=== PATIENT | male | born 1945 | race African-American/Black ===

== ENCOUNTER 2017-12-30 03:19 | Emergency (ER) | payer MEDICARE ==
[2017-12-30] MEDS ORDERED: CHLORPROMAZINE HCL 25 MG TABLET PO ONE (04:10)
[2017-12-30] MEDS ORDERED: DIPHENHYDRAMINE HCL 25 MG CAPSULE PO ONE (04:10)
--- NOTE | 2017-12-30 04:20 | ER Document Report ---
ED General - General Mode of Arrival: Ambulatory Information source: Patient TRAVEL OUTSIDE OF THE [place] IN LAST 30 DAYS: No <VIKKI GATES - Last Filed: 12/30/17 04:15> <DANK AGGARWAL - Last Filed: 12/30/17 05:43> - General Chief Complaint: Vomiting Stated Complaint: ABDOMINAL PAIN Time Seen by Provider: 12/30/17 03:55 Notes: Patient is a 72 year old male with a history of HTN, hyperlipidemia, diabetes type 2, GERD presents to the emergency department complaining of hiccups, abdominal pain and vomiting onset approximately 10 days ago. Patient states he was seen by his primary care provider and was prescribed Valium. Patient states the Valium has not helped his hiccups. Patient states he feels that the vomiting and abdominal pain is onset by hiccuping. He further states he continuously hiccups, reporting that he will not go hours without hiccuping. Patient denies any nausea, dysuria, or prostate problems. (VIKKI GATES) - Related Data Allergies/Adverse Reactions: No Known Allergies Allergy (Unverified 12/07/14 19:45) Past Medical History - General Information source: Patient - Social History Smoking Status: Never Smoker Cigarette use (# per day): No Chew tobacco use (# tins/day): No Smoking Education Provided: No Frequency of alcohol use: None Family History: Reviewed & Not Pertinent - Past Medical History Cardiac Medical History: Reports: Hx Hypercholesterolemia, Hx Hypertension - on meds Endocrine Medical History: Reports: Hx Diabetes Mellitus Type 2 Renal/ Medical History: Reports: Hx Kidney Stones Psychiatric Medical History: Reports: Hx Depression - Immunizations Hx Diphtheria, Pertussis, Tetanus Vaccination: Yes Hx Pneumococcal Vaccination: 08/18/14 <VIKKI GATES - Last Filed: 12/30/17 04:15> Review of Systems - Review of Systems Constitutional: See HPI EENT: No symptoms reported Cardiovascular: No symptoms reported Respiratory: No symptoms reported Gastrointestinal: See HPI, Abdominal pain, Vomiting Genitourinary: No symptoms reported Male Genitourinary: No symptoms reported Musculoskeletal: No symptoms reported Skin: No symptoms reported Hematologic/Lymphatic: No symptoms reported Neurological/Psychological: No symptoms reported -: Yes All other systems reviewed and negative <VIKKI GATES - Last Filed: 12/30/17 04:15> Physical Exam - General General appearance: Appears well, Alert In distress: None - HEENT Head: Normocephalic, Atraumatic Eyes: Normal Conjunctiva: Normal Extraocular movements intact: Yes Pupils: PERRL Mucous membranes: Normal Neck: Normal - Respiratory Respiratory status: No respiratory distress Chest status: Nontender Breath sounds: Normal Chest palpation: Normal - Cardiovascular Rhythm: Regular Heart sounds: Normal auscultation Murmur: No Friction rub: No Gallop: None auscultated - Abdominal Inspection: Obese Distension: No distension Bowel sounds: Normal Tenderness: Nontender Organomegaly: No organomegaly - Back Back: Normal - Extremities General upper extremity: Normal ROM General lower extremity: Normal ROM - Neurological Neuro grossly intact: Yes Cognition: Normal Orientation: AAOx4 Maria Eugenia Coma Scale Eye Opening: Spontaneous Elizabeth Coma Scale Verbal: Oriented Maria Eugenia Coma Scale Motor: Obeys Commands Maria Eugenia Coma Scale Total: 15 Speech: Normal - Psychological Associated symptoms: Normal affect, Normal mood - Skin Skin Temperature: Warm Skin Moisture: Dry Skin Color: Normal <VIKKI GATES - Last Filed: 12/30/17 04:15> - Vital signs Vitals: Temp Pulse Resp BP Pulse Ox 98.5 F 67 16 135/66 H 95 12/30/17 03:46 12/30/17 03:46 12/30/17 03:46 12/30/17 03:46 12/30/17 03:46 Course <VIKKI GATES - Last Filed: 12/30/17 04:15> - Laboratory Result Diagrams: 12/30/17 04:20 12/30/17 04:20 - EKG Interpretation by Wy EKG shows normal: Sinus rhythm, [place], Intervals, QRS Complexes, ST-T Waves Rate: Normal - 60 Rhythm: NSR [place]/QRS: RBBB When compared to previous EKG there are: No significant change <DANK AGGARWAL - Last Filed: 12/30/17 05:43> - Re-evaluation Re-evalutation: 12/30/17 05:39 The patient was having hiccups until he was given Thorazine p.o. about 45 minutes ago. He has not had any hiccups since then and states that he does feel better. (DANK AGGARWAL) - Vital Signs Vital signs: Temp Pulse Resp BP Pulse Ox 98.5 F 67 16 135/66 H 95 12/30/17 03:46 12/30/17 03:46 12/30/17 03:46 12/30/17 03:46 12/30/17 03:46 - Laboratory Laboratory results interpreted by me: 12/30/17 12/30/17 12/30/17 04:20 04:20 04:20 WBC 13.0 H RBC 4.17 L Hgb 11.6 L Hct 34.8 L Absolute Neutrophils 9.0 H BUN 24 H Creatinine 1.83 H Est GFR ( Amer) 44 L Est GFR (Non-Af Amer) 36 L Glucose 165 H Direct Bilirubin 0.5 H Lipase 368.1 H Urine Blood SMALL H Ur Leukocyte Esterase TRACE H Discharge <VIKKI GATES - Last Filed: 12/30/17 04:15> <DANK AGGARWAL - Last Filed: 12/30/17 05:43> - Discharge Clinical Impression: Hiccups Condition: Stable Disposition: HOME, SELF-CARE Additional Instructions: Hiccups Hiccups are contractions of the diaphragm muscle. They usually occur without warning, but they may follow over-eating or drinking large amounts of soda. Hiccups are usually harmless. We don't know why some people have prolonged bouts of hiccups. Most of the time, they will eventually go away without treatment. Medication can be prescribed to help control hiccups. If hiccups persist, you'll need a medical work-up to see if there's any underlying illness. Return if there's any significant change, such as chest pain , abdominal pain, vomiting, or fever. Take the medications as prescribed. Stop taking the Valium that was prescribed yesterday. Follow-up with your primary care provider if not improving, or with a local metal spinner. RETURN TO THE EMERGENCY ROOM IF ANY NEW OR WORSENING SYMPTOMS. Prescriptions: Chlorpromazine HCl [Thorazine 25 Mg Tablet] 25 mg PO ASDIR PRN #30 tablet PRN Reason: Hiccups Referrals: BLACK LEIVA PA-C [Primary Care Provider] - Follow up as needed Scribe Attestation: 12/30/17 04:45 I personally performed the services described in the documentation, reviewed and edited the documentation which was dictated to the scribe in my presence, and it accurately records my words and actions. (DANK AGGARWAL) Scribe Documentation - Scribe Written by Sarahe:: Esteban Milton, 12/30/2017 04:22 acting as scribe for :: Mandi <VIKKI GATES - Last Filed: 12/30/17 04:15>
[2017-12-30 04:38] LABS: ABSOLUTE BASOPHILS # (AUTO) 0.2 10^3/uL (0.0-0.2); ABSOLUTE EOSINOPHILS # (AUTO) 0.1 10^3/uL (0.0-0.6); ABSOLUTE LYMPHOCYTES (AUTO) 2.5 10^3/uL (0.5-4.7); ABSOLUTE MONOCYTES (AUTO) 1.1 10^3/uL (0.1-1.4); BASOPHILS % (AUTO) 1.5 % (0-2); EOSINOPHILS % (AUTO) 1.1 % (0-6); HEMATOCRIT 34.8 % (37.9-51.0); HEMOGLOBIN 11.6 g/dL (13.5-17.0); LYMPHOCYTES % (AUTO) 19.6 % (13-45); MEAN CORPUSCULAR HEMOGLOBIN 27.8 pg (27.0-33.4); MEAN CORPUSCULAR HGB CONC 33.3 g/dL (32.0-36.0); MEAN CORPUSCULAR VOLUME 84 fl (80-97); MONOCYTES % (AUTO) 8.5 % (3-13); PLATELET COUNT 392 10^3/uL (150-450); RED BLOOD COUNT 4.17 10^6/uL (4.35-5.55); RED CELL DISTRIBUTION WIDTH 13.8 % (11.5-14.0); SEGMENTED NEUTROPHILS % (AUTO) 69.3 % (42-78); TOTAL CELLS COUNTED % (AUTO) 100 %
[2017-12-30 04:42] LABS: APPEARANCE,URINE CLEAR; BILIRUBIN,URINE NEGATIVE (NEGATIVE); COLOR,URINE YELLOW; GLUCOSE, URINE NEGATIVE (NEGATIVE); KETONES,URINE NEGATIVE (NEGATIVE); LEUKOCYTE ESTERASE,URINE TRACE (NEGATIVE); NITRITE,URINE NEGATIVE (NEGATIVE); PROTEIN,URINE NEGATIVE (NEGATIVE); URINE SPECIFIC GRAVITY 1.005; UROBILINOGEN,URINE NEGATIVE mg/dL (<2.0)
[2017-12-30 04:55] LABS: ALANINE AMINOTRANSFERASE 28 U/L (21-72); ALBUMIN 3.9 g/dL (3.5-5.0); ALKALINE PHOSPHATASE 68 U/L (38-126); ANION GAP 13 (5-19); ASPARTATE AMINO TRANSFERASE 44 U/L (17-59); BILIRUBIN,DIRECT 0.5 mg/dL (0.0-0.4); BILIRUBIN,TOTAL 0.5 mg/dL (0.2-1.3); BLOOD UREA NITROGEN 24 mg/dL (7-20); CALCIUM 9.6 mg/dL (8.4-10.2); CARBON DIOXIDE 28 mmol/L (22-30); CHLORIDE 102 mmol/L (98-107); CREATINE KINASE 142 U/L (55-170); GLUCOSE 165 mg/dL (75-110); LIPASE 368.1 U/L (23-300); POTASSIUM 4.3 mmol/L (3.6-5.0); SODIUM 142.7 mmol/L (137-145)
[2017-12-30 06:11] VITALS: BP 146/74
--- NOTE | 2017-12-30 08:58 | EKG REPORT ---
SEVERITY:- ABNORMAL ECG - SINUS RHYTHM RIGHT BUNDLE BRANCH BLOCK : Confirmed by: Dea Alcantara 30-Dec-2017 08:57:09
== END 2017-12-30 06:11 | disposition home or self-care (01) ==
LOC: ER 03:19
DX: R06.6 Hiccough (principal); R11.10 Vomiting, unspecified; R10.9 Unspecified abdominal pain; I10 Essential (primary) hypertension; E78.00 Pure hypercholesterolemia, unspecified; E11.9 Type 2 diabetes mellitus without complications; K21.9 Gastro-esophageal reflux disease without esophagitis; E66.9 Obesity, unspecified
CPT/HCPCS: 93005; 99284; 36415; 82550; 83690; 85025; 80053; 81001; 84484; 93010; A9270 ×2; J3490

== ENCOUNTER 2019-10-14 08:50 | Emergency (ER) | payer MEDICARE ==
[2019-10-14] MEDS ORDERED: METOCLOPRAMIDE HCL INJ/PF 10 MG/2 ML SDV IV ONE (09:38)
--- NOTE | 2019-10-14 09:40 | ER Document Report ---
ED Medical Screen (RME) - General Chief Complaint: General Weakness Stated Complaint: WEAKNESS Time Seen by Provider: 10/14/19 09:32 Primary Care Provider: BLACK LEIVA PA-C [Primary Care Provider] - Follow up as needed Notes: HPI: 73-year-old male with history of hypertension and diabetes presenting for multiple complaints. Patient has generalized weakness in the legs which makes it difficult for him to walk normally states the generalized weakness is worse over the last 24 hours. Does not have unilateral weakness. Woke up last night began vomiting has had 3 episodes of vomiting today. Complains of mild discomfort in the left lower quadrant of the abdomen. Complains of shortness of breath with the vomiting episodes. No fever or other recent illness. Patient also complaining of hiccups I have greeted and performed a rapid initial assessment of this patient. A comprehensive ED assessment and evaluation of the patient, analysis of test results and completion of the medical decision making process will be conducted by additional ED providers PHYSICAL EXAMINATION: GENERAL: Well-appearing, well-nourished and in mild acute distress. HEAD: Atraumatic, normocephalic. EYES: sclera anicteric, conjunctiva are normal. ENT: Moist mucous membranes. NECK: Normal range of motion LUNGS: Normal work of breathing, clear to auscultation HEART: 2+ radial pulses bilaterally, regular rate and rhythm ABD: limited by positioning for exam in triage. Obese. Mild tenderness in the left lateral abdomen on palpation EXTREMITIES: no pitting or edema. No cyanosis. NEUROLOGICAL: No focal neurological deficits. Moves all extremities spontaneously and on command. Mild generalized weakness bilateral lower extremities PSYCH: Normal mood, normal affect. SKIN: Warm, Dry, normal turgor, no rashes or lesions noted. TRAVEL OUTSIDE OF THE [place] IN LAST 30 DAYS: No - Related Data Allergies/Adverse Reactions: No Known Allergies Allergy (Unverified 12/07/14 19:45) Home Medications: Glimperide, Metformin, Simvastatin, Lisinopril, Spironalactone Past Medical History - Past Medical History Cardiac Medical History: Reports: Hx Hypercholesterolemia, Hx Hypertension - on meds Endocrine Medical History: Reports: Hx Diabetes Mellitus Type 2 Renal/ Medical History: Reports: Hx Kidney Stones. Denies: Hx Peritoneal Dialysis Psychiatric Medical History: Reports: Hx Depression - Immunizations Hx Diphtheria, Pertussis, Tetanus Vaccination: Yes Physical Exam - Vital signs Vitals: Temp Pulse Resp BP Pulse Ox 98.2 F 86 20 213/121 H 94 10/14/19 08:56 10/14/19 08:56 10/14/19 08:56 10/14/19 08:56 10/14/19 08:56 Course - Vital Signs Vital signs: Temp Pulse Resp BP Pulse Ox 98.2 F 86 20 213/121 H 94 10/14/19 08:56 10/14/19 08:56 10/14/19 08:56 10/14/19 08:56 10/14/19 08:56 Doctor's Discharge - Discharge Referrals: BLACK LEIVA PA-C [Primary Care Provider] - Follow up as needed
[2019-10-14 10:11] LABS: ABSOLUTE BASOPHILS # (AUTO) 0.1 10^3/uL (0.0-0.2); ABSOLUTE EOSINOPHILS # (AUTO) 0.1 10^3/uL (0.0-0.6); ABSOLUTE LYMPHOCYTES (AUTO) 3.2 10^3/uL (0.5-4.7); BASOPHILS % (AUTO) 0.9 % (0-2); EOSINOPHILS % (AUTO) 0.5 % (0-6); HEMATOCRIT 39.8 % (37.9-51.0); HEMOGLOBIN 13.8 g/dL (13.5-17.0); LYMPHOCYTES % (AUTO) 23.9 % (13-45); MEAN CORPUSCULAR HEMOGLOBIN 29.1 pg (27.0-33.4); MEAN CORPUSCULAR HGB CONC 34.6 g/dL (32.0-36.0); MEAN CORPUSCULAR VOLUME 84 fl (80-97); MONOCYTES % (AUTO) 7.6 % (3-13); PLATELET COUNT 264 10^3/uL (150-450); RED BLOOD COUNT 4.73 10^6/uL (4.35-5.55); RED CELL DISTRIBUTION WIDTH 13.7 % (11.5-14.0); SEGMENTED NEUTROPHILS % (AUTO) 67.1 % (42-78); TOTAL CELLS COUNTED % (AUTO) 100 %; WHITE BLOOD COUNT 13.4 10^3/uL (4.0-10.5)
[2019-10-14 10:21] LABS: APPEARANCE,URINE SLIGHTLY-CLOUDY; BILIRUBIN,URINE NEGATIVE (NEGATIVE); COLOR,URINE YELLOW; GLUCOSE, URINE >=500 mg/dL (NEGATIVE); KETONES,URINE NEGATIVE (NEGATIVE); LEUKOCYTE ESTERASE,URINE MODERATE (NEGATIVE); NITRITE,URINE NEGATIVE (NEGATIVE); PROTEIN,URINE 100 mg/dL (NEGATIVE); URINE SPECIFIC GRAVITY 1.008; UROBILINOGEN,URINE NEGATIVE mg/dL (<2.0)
--- NOTE | 2019-10-14 10:55 | RADIOLOGY REPORT (SQ) ---
EXAM DESCRIPTION: CHEST 2 VIEWS COMPLETED DATE/TIME: 10/14/2019 10:44 am REASON FOR STUDY: sob COMPARISON: AP view of the chest from 12/01/2015. EXAM PARAMETERS: NUMBER OF VIEWS: Two views. TECHNIQUE: PA and lateral views of the chest were obtained.. RADIATION DOSE: NA LIMITATIONS: none FINDINGS: LUNGS AND PLEURA: No consolidation, pleural effusion or pneumothorax. MEDIASTINUM AND HILAR STRUCTURES: No mediastinal or hilar contour abnormality. HEART AND VASCULAR STRUCTURES: The cardiac silhouette and pulmonary vasculature are within normal [place] its. BONES: No acute findings. HARDWARE: None in the chest. OTHER: No other finding. IMPRESSION: No acute cardiopulmonary process. TECHNICAL DOCUMENTATION: JOB ID: [id number] 2010 [employer]- All Rights Reserved Reading location - IP/workstation name: [email or web address]
--- NOTE | 2019-10-14 10:57 | RADIOLOGY REPORT (SQ) ---
EXAM DESCRIPTION: ABDOMEN 2 VIEWS COMPLETED DATE/TIME: 10/14/2019 10:44 am REASON FOR STUDY: vomiting COMPARISON: 12/05/2015. NUMBER OF VIEWS: Two views. TECHNIQUE: Supine and erect/decubitus radiographic images of the abdomen acquired. LIMITATIONS: None. FINDINGS: FREE AIR: None. LUNG BASES: No abnormality. BOWEL GAS PATTERN: No dilated loops of bowel or differential air-fluid levels. CALCIFICATIONS: None. SOFT TISSUES: No abnormality. HARDWARE: None in the abdomen. BONES: No acute findings. OTHER: No other finding. IMPRESSION: Nonobstructive bowel gas pattern. TECHNICAL DOCUMENTATION: JOB ID: [id number] 2010 [employer]- All Rights Reserved Reading location - IP/workstation name: [email or web address]
[2019-10-14 11:20] LABS: ALBUMIN 4.2 g/dL (3.5-5.0); ALKALINE PHOSPHATASE 72 U/L (38-126); ANION GAP 17 (5-19); ASPARTATE AMINO TRANSFERASE 15 U/L (17-59); BILIRUBIN,DIRECT 0.2 mg/dL (0.0-0.4); BILIRUBIN,TOTAL 0.7 mg/dL (0.2-1.3); BLOOD UREA NITROGEN 15 mg/dL (7-20); CARBON DIOXIDE 22 mmol/L (22-30); CHLORIDE 96 mmol/L (98-107); GLUCOSE 290 mg/dL (75-110); POTASSIUM 4.1 mmol/L (3.6-5.0); TOTAL PROTEIN 7.8 g/dL (6.3-8.2)
[2019-10-14] MEDS ORDERED: NORMAL SALINE 1000 ML 1,000 ML IV ONE (12:49)
[2019-10-14] MEDS ORDERED: CEFTRIAXONE 1 GM/D5W RTU 1 GM/50 ML RTUPB IV ONE (12:50)
--- NOTE | 2019-10-14 15:09 | ER Document Report ---
Entered by RAISA CAMARA SCRIBE 10/14/19 1156 Acting as scribe for:JUAN FRANCISCO MANLEY, ED General - General Chief Complaint: General Weakness Stated Complaint: WEAKNESS Time Seen by Provider: 10/14/19 09:32 Primary Care Provider: BLACK LEIVA PA-C [COMMUNITY BASED STAFF] - Follow up as needed Mode of Arrival: Ambulatory Information source: Patient Notes: This 73-year-old male patient presents to the emergency department today with c omplaints of nausea, vomiting, and diarrhea. Patient states that he has had "excessive burping" as well. Patient states his vomit has a strong odor to it. Patient denies fevers, diarrhea, chest pain, or usage of blood thinning medication. TRAVEL OUTSIDE OF THE [place] IN LAST 30 DAYS: No - Related Data Allergies/Adverse Reactions: No Known Allergies Allergy (Unverified 12/07/14 19:45) Home Medications: Glimperide, Metformin, Simvastatin, Lisinopril, Spironalactone Past Medical History - General Information source: Patient - Social History Smoking Status: Unknown if Ever Smoked Cigarette use (# per day): No Frequency of alcohol use: None Drug Abuse: None Lives with: Family Family History: Reviewed & Not Pertinent Patient has suicidal ideation: No Patient has homicidal ideation: No - Past Medical History Cardiac Medical History: Reports: Hx Hypercholesterolemia, Hx Hypertension - on meds Endocrine Medical History: Reports: Hx Diabetes Mellitus Type 2 Renal/ Medical History: Reports: Hx Kidney Stones. Denies: Hx Peritoneal Dialysis Psychiatric Medical History: Reports: Hx Depression - Immunizations Hx Diphtheria, Pertussis, Tetanus Vaccination: Yes Hx Pneumococcal Vaccination: 08/18/14 Review of Systems - Review of Systems Constitutional: denies: Fever EENT: No symptoms reported Cardiovascular: denies: Chest pain Respiratory: No symptoms reported Gastrointestinal: See HPI, Nausea, Vomiting. denies: Diarrhea Genitourinary: No symptoms reported Male Genitourinary: No symptoms reported Musculoskeletal: No symptoms reported Skin: No symptoms reported Hematologic/Lymphatic: No symptoms reported Neurological/Psychological: No symptoms reported -: Yes All other systems reviewed and negative Physical Exam - Vital signs Vitals: Temp Pulse Resp BP Pulse Ox 98.2 F 86 20 213/121 H 94 10/14/19 08:56 10/14/19 08:56 10/14/19 08:56 10/14/19 08:56 10/14/19 08:56 - Notes Notes: Physical Exam: General: Alert, appears frail. HEENT: Normocephalic. Atraumatic. PERRL. Extraocular movements intact. Oropharynx clear. Neck: Supple. Non-tender. Respiratory: No respiratory distress. Clear and equal breath sounds bilaterally. Cardiovascular: Regular rate and rhythm. Abdominal: Morbidly obese. Non-tender. No distension. Normal Bowel Sounds. Back: No gross abnormalities. Extremities: Moves all four extremities. Upper extremities: Normal inspection. Normal ROM. Lower extremities: Normal inspection. No edema. Normal ROM. Neurological: Normal cognition. AAOx4. Normal speech. Psychological: Normal affect. Normal Mood. Skin: Warm. Dry. Normal color. Course - Re-evaluation Re-evalutation: 10/14/19 15:15 MDM Delightful 73 year old male arrives with with complaints of nausea and vomiting and loose stool for a day. No fever. No known sick contacts and no travel. Generalized weakness is not new, but is worse since the nausea and vomiting. Lives with renal insuf, hld, htn and dm. He has hiccups - these have responded well to thorazine in the past per the , and a uti. I discussed admission with them, given the dm and uti and feels he will be ok at home and will return here if he worsens. We discussed this. - Vital Signs Vital signs: Temp Pulse Resp BP Pulse Ox 98.4 F 86 14 213/121 H 95 10/14/19 14:30 10/14/19 08:56 10/14/19 12:00 10/14/19 08:56 10/14/19 12:00 - Laboratory Result Diagrams: 10/14/19 09:56 10/14/19 10:43 Laboratory results interpreted by me: 10/14/19 10/14/19 10/14/19 09:56 10:00 10:43 WBC 13.4 H Absolute Neuts (auto) 9.0 H Sodium 134.6 L Chloride 96 L Creatinine 1.59 H Est GFR ( Amer) 52 L Est GFR (MDRD) Non-Af 43 L Glucose 290 H AST 15 L Lipase 359.8 H Urine Protein 100 H Urine Glucose (UA) >=500 H Urine Blood SMALL H Ur Leukocyte Esterase MODERATE H - Diagnostic Test Radiology reviewed: Reports reviewed - EKG Interpretation by Me EKG shows normal: Sinus rhythm Rate: Normal Rhythm: NSR - NSR [address] elevation or depression my interpretation. Discharge - Discharge Clinical Impression: UTI (urinary tract infection) Qualifiers: Urinary tract infection type: site unspecified Hematuria presence: with hematuria Qualified Code(s): N39.0 - Urinary tract infection, site not specified Diabetes mellitus Qualifiers: Diabetes mellitus type: type 2 Diabetes mellitus buttermaker insulin use: unspecified buttermaker insulin use status Diabetes mellitus complication status: with other specified complication Qualified Code(s): E11.69 - Type 2 diabetes mellitus with other specified complication Condition: Good Disposition: HOME, SELF-CARE Instructions: Cephalexin ([facility]), Hiccups ([facility]), Urinary Tract Infection ([facility]) Additional Instructions: Rest, fluids, medicines as directed. Please return here for any problems or any concerns. Return here for vomiting, fever, change in mental status or other concerns. Your lipase - a pancreatic enzyme - was elevated a bit and should be rechecked. See your primary doctor about this. Prescriptions: Cephalexin Monohydrate [Keflex 500 mg Capsule] 500 mg PO TID #30 capsule Chlorpromazine HCl [Thorazine 25 Mg Tablet] 25 mg PO TID #30 tablet Ondansetron [Zofran Odt 4 mg Tablet] 1 - 2 tab PO Q4H PRN #15 tab.rapdis PRN Reason: For Nausea/Vomiting Referrals: BLACK LEIVA PA-C [COMMUNITY BASED STAFF] - Follow up as needed I personally performed the services described in the documentation, reviewed and edited the documentation which was dictated to the scribe in my presence, and it accurately records my words and actions.
[2019-10-14] MEDS ORDERED: ONDANSETRON HCL INJ/PF 4 MG/2 ML SDV IV ONE (15:21)
[2019-10-14] MEDS ORDERED: CHLORPROMAZINE HCL 25 MG TABLET PO ONE (15:23)
[2019-10-14] MEDS ORDERED: INSULIN REG, HUMAN 100 UNIT/ML 3 ML VIAL (PYX) IV ONE (15:29)
[2019-10-14 16:04] VITALS: BP 162/88
--- NOTE | 2019-10-14 19:44 | EKG REPORT ---
SEVERITY:- ABNORMAL ECG - SINUS RHYTHM ATRIAL PREMATURE COMPLEX RIGHT BUNDLE BRANCH BLOCK : Confirmed by: Alecia Weaver MD 14-Oct-2019 19:43:09
== END 2019-10-14 16:08 | disposition home or self-care (01) ==
LOC: ER 08:50
DX: N39.0 Urinary tract infection, site not specified (principal); R31.9 Hematuria, unspecified; R11.2 Nausea with vomiting, unspecified; R19.7 Diarrhea, unspecified; E11.8 Type 2 diabetes mellitus with unspecified complications; R14.2 Eructation; I10 Essential (primary) hypertension; R06.6 Hiccough; R53.1 Weakness; E78.00 Pure hypercholesterolemia, unspecified; Z79.84 Long term (current) use of oral hypoglycemic drugs; Z79.899 Other long term (current) drug therapy
CPT/HCPCS: 93005; 99284; 96361; 96375; 96365; 36415; 83605; 83690; 85025; 80053; 81001; 84484; 74019; 71046; 93010; A9270 ×2; J2765; J2405; J7030; J0696; J1815; J3490